=== PATIENT | female | born 1985 | race Caucasian/White ===

== ENCOUNTER → 2018-03-29 | Outpatient (CLI) | payer MEDICAID ==
[2015-12-28 07:15] VITALS: BP 123/73
[~2018-03-29] MED LIST: FLOVENT HFA12 GM IN; IPRATROPIUM BROM3 M1 IH; OMEPRAZOLE20 MG PO; ORTHO-CYCLEN 21 EACH PO; PREDNISONE20 M1 PO; RELION VEN0.09 MG/Ac IN; VIBRAMYCIN100 MG PO
[2018-03-29 08:53] LABS: EOS # 0.4 (0.04-0.40); EOS % 3.8 % (1.0-5.0); HEMATOCRIT 43.6 % (37.0-47.0); HEMOGLOBIN 14.5 g/dL (12.5-16.0); LYMPH# 2.9 (1.50-4.00); MEAN CELL VOLUME 91 fl (78-100); MEAN CORPUSCULAR HEMOGLOBIN 30 pg (27-31); MEAN CORPUSCULAR HGB CONC 33 g/dL (33-37); MEAN PLATELET VOLUME 9.2 fl (7.4-10.4); MONO # 0.6 (0.20-0.80); NEU # 5.4 (1.40-6.50); PLATELET COUNT 293 K/mm3 (130-400); RED CELL DISTRIBUTION WIDTH 13.8 % (11.5-14.5); WHITE BLOOD COUNT 9.3 K/mm3 (4.8-10.8)
== END ==
LOC: LAB 08:34
PROVIDERS: Physician Assistant
DX: J20.8 Acute bronchitis due to other specified organisms (principal); B96.89 Other specified bacterial agents as the cause of diseases classified elsewhere; J45.909 Unspecified asthma, uncomplicated; Z72.0 Tobacco use

== ENCOUNTER → 2018-04-30 | Outpatient (CLI) | payer MEDICAID ==
[2015-12-28 07:15] VITALS: BP 123/73
== END ==
LOC: RAD 08:47
DX: M77.32 Calcaneal spur, left foot (principal)

== ENCOUNTER → 2018-05-30 | Outpatient (CLI) | payer MEDICAID ==
[2015-12-28 07:15] VITALS: BP 123/73
== END ==
LOC: RAD 09:34
DX: M54.9 Dorsalgia, unspecified (principal); M25.552 Pain in left hip

== ENCOUNTER → 2018-07-23 | Outpatient (CLI) | payer MEDICAID ==
[2015-12-28 07:15] VITALS: BP 123/73
== END ==
LOC: RAD 09:11
DX: R06.02 Shortness of breath (principal)

== ENCOUNTER → 2019-01-22 | Outpatient (CLI) | payer MEDICAID ==
[2015-12-28 07:15] VITALS: BP 123/73
[2019-01-22 14:19] LABS: EOS # 0.4 (0.04-0.40); HEMATOCRIT 43.4 % (37.0-47.0); HEMOGLOBIN 14.1 g/dL (12.5-16.0); LYMPH# 3.2 (1.50-4.00); MEAN CELL VOLUME 89 fl (78-100); MEAN CORPUSCULAR HEMOGLOBIN 29 pg (27-31); MEAN CORPUSCULAR HGB CONC 33 g/dL (33-37); MEAN PLATELET VOLUME 9.6 fl (7.4-10.4); MONO # 0.8 (0.20-0.80); NEU # 7.1 (1.40-6.50); PLATELET COUNT 306 K/mm3 (130-400); RED BLOOD COUNT 4.87 M/mm3 (4.10-5.30); WHITE BLOOD COUNT 11.5 K/mm3 (4.8-10.8)
== END ==
LOC: LAB 13:16
PROVIDERS: Internal Medicine Pulmonary Disease
DX: F17.210 Nicotine dependence, cigarettes, uncomplicated (principal)

== ENCOUNTER → 2019-08-23 | Outpatient (CLI) | payer MEDICAID ==
[2015-12-28 07:15] VITALS: BP 123/73
== END ==
LOC: LAB 10:10
DX: R05 Cough (principal); R06.02 Shortness of breath; R42 Dizziness and giddiness; Z20.828 Contact with and (suspected) exposure to other viral communicable diseases

== ENCOUNTER → 2019-12-27 | Outpatient (CLI) | payer MEDICAID ==
[2015-12-28 07:15] VITALS: BP 123/73
== END ==
LOC: LAB 10:17
DX: R05 Cough (principal); R06.02 Shortness of breath; R09.81 Nasal congestion; R19.7 Diarrhea, unspecified; R43.9 Unspecified disturbances of smell and taste; R53.83 Other fatigue; Z20.828 Contact with and (suspected) exposure to other viral communicable diseases

== ENCOUNTER → 2020-09-02 | Outpatient (CLI) | payer MEDICAID ==
[2020-09-02 09:04] LABS: BASO # 0.04 (0.02-0.10); EOS # 0.35 (0.04-0.40); EOS % 2.7 % (1.0-5.0); HEMATOCRIT 46.1 % (37.0-47.0); HEMOGLOBIN 15.1 g/dL (12.5-16.0); LYMPH# 3.46 (1.50-4.00); MEAN CELL VOLUME 89 fl (78-100); MEAN CORPUSCULAR HEMOGLOBIN 29 pg (27-31); MEAN CORPUSCULAR HGB CONC 33 g/dL (33-37); MEAN PLATELET VOLUME 9.3 fl (7.4-10.4); PLATELET COUNT 293 K/mm3 (130-400); RED BLOOD COUNT 5.18 M/mm3 (4.10-5.30); RED CELL DISTRIBUTION WIDTH 13.6 % (11.5-14.5); WHITE BLOOD COUNT 12.8 K/mm3 (4.8-10.8)
[2020-09-02 09:20] LABS: POTASSIUM 4.5 mmol/L (3.5-5.1)
[2020-09-02 09:21] LABS: ALBUMIN 4.1 g/dL (3.5-5.0)
[2020-09-02 09:23] LABS: TOTAL PROTEIN 7.2 g/dL (6.4-8.3)
[2020-09-02 09:25] LABS: TOTAL BILIRUBIN 0.4 mg/dL (0.2-1.2)
== END ==
LOC: LAB 08:39
PROVIDERS: Physician Assistant
DX: Z00.00 Encounter for general adult medical examination without abnormal findings (principal); R63.5 Abnormal weight gain; Z83.3 Family history of diabetes mellitus